=== PATIENT | female | born 1985 | race Caucasian/White ===

== ENCOUNTER 2017-01-31 08:53 | Inpatient (IN) | payer OTHER ==
[2017-01-31] MEDS ORDERED: Oxytocin in LR* 20 UNITS/1,000 ML BAG IVPB SCH ×2 (10:00→17:00)
[2017-01-31] MEDS ORDERED: [UNRECOGNIZED DRUG - MIXTURE] ONE (10:18)
[2017-01-31 10:48] LABS: Hematocrit 32 % (35-47); Hemoglobin 10.9 g/dl (12.0-16.0); Mean Corpuscular HGB Conc 34 g/dl (31-36); Mean Corpuscular Hemoglobin 28 pg (27-31); Mean Corpuscular Volume 84 fL (80-97); Mean Platelet Volume 9 um3 (7.4-10.4); Red Blood Count 3.84 10^6/ul (4.0-5.4); Red Cell Distribution Width 15 % (10.5-15); White Blood Count 11.5 10^3/ul (3.5-10.8)
[2017-01-31] MEDS ORDERED: EPHEDrine (Pressors)* 50 MG/ML VIAL IV PUSH PRN ×2 (13:16)
[2017-01-31] MEDS ORDERED: Famotidine TAB* 20 MG PO PRN (13:16)
[2017-01-31] MEDS ORDERED: Sodium Citrate/Citric Acid* 15 ML UDC PO PRN (13:16)
[2017-01-31] MEDS ORDERED: Phenylephrine IV* 40 MCG/ML 10 ML SYRINGE IV PUSH PRN ×2 (13:16)
[2017-01-31] MEDS ORDERED: OBEPIDURAL* 250 ML EPIDURAL SCH (14:00)
[2017-01-31] MEDS ORDERED: PROCHLORPERAZINE INJ 5 MG/ML 2 ML VIAL ONE (16:18)
[2017-01-31] MEDS ORDERED: ceFOXitin 2 GM IVPREMIX* 2 GM/50 ML BAG IVPB ONE (16:47)
[2017-01-31] MEDS ORDERED: Sodium Citrate/Citric Acid* 15 ML UDC PO ONE (16:48)
[2017-01-31] MEDS ORDERED: ceFOXitin 2 GM IVPREMIX* 2 GM/50 ML BAG ONE (16:57)
[2017-01-31] MEDS ORDERED: Ibuprofen TAB* 600 MG PO PRN (16:58)
[2017-01-31] MEDS ORDERED: Measles, Mumps,Rubella VACC* 0.5 ML/VIAL SUBCUT ONE (16:58)
[2017-01-31] MEDS ORDERED: Witch Hazel PAD* JAR TOPICAL PRN (16:58)
[2017-01-31] MEDS ORDERED: Glycerin ADULT SUPP PR PRN (16:58)
[2017-01-31] MEDS ORDERED: oxyCODONE/Acetamin 5/325 MG* TAB PO PRN ×3 (16:58→18:08)
[2017-01-31] MEDS ORDERED: Dibucaine 1% 28.35 GM TUBE PR PRN (16:58)
[2017-01-31] MEDS ORDERED: Lidocaine 2% PF* 10 ML AMP ONE (17:10)
[2017-01-31] MEDS ORDERED: OXYTOCIN* 10 UNITS/ML 1 ML VIAL ONE (17:48)
[2017-01-31] MEDS ORDERED: Ondansetron INJ* 2 MG/ML VIAL IV PRN ×2 (17:55→18:08)
[2017-01-31] MEDS ORDERED: Nalbuphine* 20 MG/ML 1 ML VIAL IV PRN ×3 (17:55→18:08)
[2017-01-31] MEDS ORDERED: fentaNYL* 50 MCG/ML 2 ML VIAL (100 MCG VIAL) IV PRN (17:55)
[2017-01-31] MEDS ORDERED: oxyCODONE TAB* 5 MG TAB PO PRN (17:55)
[2017-01-31] MEDS ORDERED: HYDROmorphone INJ* 1 MG/ML CARPUJECT SYRINGE IV PRN (17:55)
[2017-01-31] MEDS ORDERED: DiMENhydriNATE IV* 50 MG/ML VIAL IV PUSH PRN ×2 (17:55→18:08)
[2017-01-31] MEDS ORDERED: diPHENhydraMINE IV* 50 MG/ML 1 ml VIAL (BENADRYL) IV PRN ×2 (17:55→18:08)
[2017-01-31] MEDS ORDERED: HYDROcodone/ACETAMIN 5-325 MG* 1 TAB PO PRN ×2 (17:55→18:08)
[2017-01-31] MEDS ORDERED: Ondansetron INJ* 2 MG/ML VIAL ONE (18:04)
[2017-01-31] MEDS ORDERED: Ketorolac INJ* 30 MG/ML 1 ML VIAL ONE (18:05)
[2017-01-31] MEDS ORDERED: fentaNYL* 50 MCG/ML 2 ML VIAL (100 MCG VIAL) ONE (18:06)
[2017-01-31] MEDS ORDERED: Metoclopramide IV* 5 MG/ML 2 ML VIAL IV PRN (18:08)
[2017-01-31] MEDS ORDERED: Naloxone* 0.4 MG/ML 1 ML VIAL IV PRN (18:08)
[2017-01-31] MEDS ORDERED: Scopolamine 1.5 mg* PATCH TRANSDERM PRN (18:08)
[2017-01-31] MEDS ORDERED: PROCHLORPERAZINE INJ 5 MG/ML 2 ML VIAL IV PRN (18:08)
[2017-01-31] MEDS ORDERED: Scopolomine PATCH Remove* 1 NOTE MISC PATCH OFF PRN (18:08)
[2017-01-31] MEDS ORDERED: Naloxone* 2 MG in NS 0.9% 250 ML* 250 ML IV PRN (18:08)
[2017-01-31] MEDS ORDERED: Morphine PF AMP (0.5MG/ML)* 5 MG/10 ML AMP ONE (18:13)
[2017-01-31] MEDS: Simethicone TAB* 80 MG TAB.CHEW PO SCH ×2 (20:09→21:57)
[2017-01-31] MEDS: Docusate CAP* 100 MG PO SCH (21:57)
[2017-02-01] MEDS: Ketorolac INJ* 30 MG/ML 1 ML VIAL IV PRN ×3 (00:36→13:42)
[2017-02-01] MEDS: Acetaminophen TAB* 325 MG PO PRN (04:26)
[2017-02-01] MEDS: Docusate CAP* 100 MG PO SCH ×3 (08:32→20:47)
[2017-02-01] MEDS: Simethicone TAB* 80 MG TAB.CHEW PO SCH ×4 (08:32→20:47)
[2017-02-01] MEDS: Prenatal Vitamin TAB PO SCH (08:32)
[2017-02-01] MEDS ORDERED: Influenza VAC *QUAD* 2017-18* 0.5 ML SYRINGE IM ONE (09:00)
[2017-02-01 09:44] LABS: Hematocrit 23 % (35-47); Hemoglobin 7.7 g/dl (12.0-16.0); Mean Corpuscular HGB Conc 34 g/dl (31-36); Mean Corpuscular Hemoglobin 28 pg (27-31); Mean Corpuscular Volume 83 fL (80-97); Mean Platelet Volume 9 um3 (7.4-10.4); Red Blood Count 2.75 10^6/ul (4.0-5.4); Red Cell Distribution Width 15 % (10.5-15); White Blood Count 14.1 10^3/ul (3.5-10.8)
[2017-02-01] MEDS: Ferrous Gluconate TAB* 324 MG TAB PO SCH ×2 (10:19→20:47)
[2017-02-01] MEDS: Ibuprofen TAB* 600 MG PO PRN (20:47)
--- NOTE | 2017-02-01 21:41 | OP ---
OPERATIVE REPORT: DATE OF OPERATION: 01/31/17 - [facility] : 89 SURGEON: Oralia Mooney MD CONTINUOUS IMPROVEMENT INTERN: Km Das MD ANESTHESIOLOGIST: Simón Larry MD ANESTHESIA: Epidural. PRE-OP DIAGNOSES: Intrauterine at 41 plus weeks, arrest of dilation, arrest of descent. Bicornuate uterus. POST-OP DIAGNOSES: Intrauterine at 41 plus weeks, arrest of dilation , arrest of descent, delivered. Bicornuate uterus with uterine septum. OPERATIVE PROCEDURE: Primary low transverse section. ESTIMATED BLOOD LOSS: 800 cc. URINE OUTPUT: 150 cc of concentrated yellow urine. FLUIDS: 1600 cc of crystalloid. FINDINGS: Revealed a vertex male infant with Apgars 9 at 1 minute and 9 at 5 minutes. Weight was 8 pounds 4 ounces. Placenta was manually extracted, noted to be intact with a normal appearance and 3-vessel cord. Uterine findings: 2 separate uterine cavities identified, by a septum extending from the fundus down to the cervix, right horn of the uterus, a fully contained baby with no evidence of fenestration of the septum superior to the cervix. No evidence of retained placental tissue or membranes. Both uterine cavities were swabbed and noted to be free of any material including placental membranes . COMPLICATIONS: None apparent. DISPOSITION: Stable to recovery room. DESCRIPTION OF PROCEDURE: The patient was placed in dorsal lithotomy position. The abdomen was prepped and draped in a sterile standard fashion. Anesthesia was tested to appropriate level. The patient was identified with universal protocol prior to proceeding with the procedure. A scalpel was used to incise the skin 2 fingerbreadths above the pubic symphysis. This was carried down to the fascia. The fascia was scored in the midline and the fascial incision was extended laterally and superiorly using curvilinear scissors and pickups . The fascia was then from the rectus muscle with blunt and sharp dissections superiorly and inferiorly. The peritoneum was entered bluntly. The peritoneal incision was extended bluntly while directly visualizing bladder and bowel. The bladder blade was inserted. Lower uterine segment was identified and tented up with an Allis. An incision was made with scalpel down to the membrane. The incision was extended laterally and superiorly using bandage scissors. The amniotomy was created. Clear fluid was noted. Attempted several times to deliver the head. The skin incision was then extended with a scalpel and the baby delivered vertex, anterior and posterior shoulder delivered. No nuchal cord was appreciated. No meconium seen. Cord was allowed to pulse for greater than 60 seconds. The cord was then clamped and cut and the was handed off to the awaiting eligibility and occupancy interviewer. Appropriate cord blood was then obtained. The placenta was then manually extracted. The uterus was exteriorized and extreme difference in the sizes of the uterine cavities were noted. The right side of the uterus was fully developed, the left being minimally so. The entrance into the lower uterine segment was where the septum actually ended. There was an area of septum that had become devascularized with the descent of the head. The head was noted to be asynclitic with the delivery secondary to the disproportionate uterine cavities. The uterine incision itself was then reapproximated using 0 Vicryl first layer running locked, second layer running imbricated for complete hemostasis. The uterus was returned intraabdominally, colic gutters were lavaged, clot was removed, the hysterotomy site was noted to be hemostatic with no evidence of bleeding. The peritoneum was then clamped with Lizeth and then reapproximated using 3-0 Vicryl in a running fashion. The skin was then reapproximated using 4-0 Monocryl in a subcuticular running fashion. Mastisol and Steri-Strips were applied. All sponge, needle, instrument and blade counts were correct throughout the case. The patient tolerated the procedure well and went to recovery room in stable condition. [id number]/[facility] #: [id number] [facility] CENTERVictorino
[2017-02-02] MEDS: Simethicone TAB* 80 MG TAB.CHEW PO SCH ×4 (01:00→20:33)
[2017-02-02] MEDS: Ibuprofen TAB* 600 MG PO PRN ×2 (05:11→15:02)
[2017-02-02] MEDS: Docusate CAP* 100 MG PO SCH ×3 (10:08→20:32)
[2017-02-02] MEDS: Prenatal Vitamin TAB PO SCH (10:08)
[2017-02-02] MEDS: Ferrous Gluconate TAB* 324 MG TAB PO SCH ×2 (11:35→20:33)
--- NOTE | 2017-02-02 15:36 | PTEDU ---
Patient Name: JANA HEDRICK JANA HEDRICK selected video: Never Ever Shake a Baby to view on 02/02/2017 at 3:34:24 PM jose meléndez [id number]
[2017-02-02] MEDS: Acetaminophen TAB* 325 MG PO PRN (15:59)
[2017-02-03] MEDS: Ibuprofen TAB* 600 MG PO PRN ×3 (00:59→14:31)
[2017-02-03] MEDS: Acetaminophen TAB* 325 MG PO PRN (05:56)
[2017-02-03 07:49] VITALS: BP 125/72
[2017-02-03] MEDS: Prenatal Vitamin TAB PO SCH (08:26)
[2017-02-03] MEDS: Simethicone TAB* 80 MG TAB.CHEW PO SCH ×2 (08:26→13:01)
[2017-02-03] MEDS: Ferrous Gluconate TAB* 324 MG TAB PO SCH (08:26)
[2017-02-03] MEDS: Docusate CAP* 100 MG PO SCH ×2 (08:26→13:00)
[2017-02-03] MEDS ORDERED: Influenza VAC *QUAD* 2017-18* 0.5 ML SYRINGE IM ONE (13:26)
== END 2017-02-03 14:53 | disposition home or self-care (01) | DRG 766 ==
LOC: MCHOBOUT 08:53 → MCHOB 09:24
PROVIDERS: ADMIT Obstetrics & Gynecology; ATTEND Obstetrics & Gynecology
PROC: 3E0P3VZ Introduction of Hormone into Female Reproductive, Percutaneous Approach (ICD-10-PCS; 2017-01-31)
PROC: 10907ZC Drainage of Amniotic Fluid, Therapeutic from Products of Conception, Via Natural or Artificial Opening (ICD-10-PCS; 2017-01-31)
PROC: 10D00Z1 Extraction of Products of Conception, Low, Open Approach (ICD-10-PCS; principal; 2017-01-31 17:21)
DX: O34.03 Maternal care for unspecified congenital malformation of uterus, third trimester (principal); D64.9 Anemia, unspecified; O90.81 Anemia of the puerperium; Q51.3 Bicornate uterus; O32.4XX0 Maternal care for high head at term, not applicable or unspecified; O62.0 Primary inadequate contractions; Z3A.41 41 weeks gestation of pregnancy; Z37.0 Single live birth
CPT/HCPCS: 36415; 85025; 86850; 86900; 86901; 88307; 90686; 90707; A9270-GY; J0694; J0780; J1885; J2001; J2405; J2590; J3010

== ENCOUNTER 2019-02-01 06:21 | Inpatient (IN) | payer OTHER ==
[~2019-02-01 06:21] MED LIST: Buffered Lidocaine 1% SYRIN* 1 ML/SYRINGE INTRADERM ONE; Lactated Ringers 1000 ML Bag* 1,000 ML IV SCH; Sodium Citrate/Citric Acid* 15 ML UDC PO ONE
--- OUTSIDE RECORDS SUMMARY | 2019-02-01 06:24 | XMS REPORT | Continuity of Care Document ---
:1985 External Reference #:[id number] Author Name Oralia Mooney MD Address [address] [place] [address] Care Team Providers Name Role Phone Freda Jaime MD Care Team Information Bad Cloth Checker [phone] Problems Description No Information Available Social History Type Date Description Comments Sex Unknown Tobacco Use Start: Unknown Never Smoked Cigarettes ETOH Use Denies alcohol use Tobacco Use Start: Unknown Patient has never smoked Recreational Drug Use Denies Drug Use Smoking Status Reviewed: 01/26/19 Patient has never smoked Exercise Type/Frequency Exercises sporadically Seat Belt/Car Seat Always uses seat belt Allergies, Adverse Reactions, Alerts Description No Known Drug Allergies Medications Active Medications SIG Qnty Indications Ordering Provider Date 1 po qd Unknown Iron 1 by mouth 90tabs Unknown 325(65Fe) mg Tablets every day History Medications Ranitidine 150 take one tab by 60tabs Danyell Guzman MD 08/30/2018 - Maximum Strength mouth at bedtime 10/11/2018 150mg and again in Tablets morning for reflux symptoms Immunizations CPT Code Status Date Vaccine Lot # [id number] Given 01/12/2019 Tetnus, Diptheria Toxoids And Acellular Pertussis, [id number] PT > 7Yrs Old [address]00 Given 01/12/2019 Influenza Vaccine Quadrivalent Preser/Antibiotic [id number] Free Im Use 02625 Given 07/31/2018 Influenza Vaccine Quadrivalent Preser/Antibiotic [id number] Free Im Use 64000 Given 10/26/2016 Tetnus, Diptheria Toxoids And Acellular Pertussis, [id number] PT > 7Yrs Old Vital Signs Date Vital Result Comment 07/31/2018 1:17pm BP Systolic 106 mmHg BP Diastolic 62 mmHg Height 65 inches 5'5" Weight 153.00 lb BMI (Body Mass Index) 25.5 kg/m2 Last Menstrual Period 9001236 2 Parity 1 03/18/2017 2:14pm BP Systolic 112 mmHg BP Diastolic 66 mmHg Height 65 inches 5'5" Weight 165.00 lb BMI (Body Mass Index) 27.5 kg/m2 1 Parity 1 Results Test Date Facility Test Result H/L Range Note CBC Auto 01/30/2019 [facility] White Blood 9.5 10^3/uL Normal 3.5-10.8 [place] [address] Count [phone] Red Blood Count 3.47 10^6/uL Low 3.70-4.87 Hemoglobin 9.8 g/dL Low 12.0-16.0 Hematocrit 28 % Low 35-47 Mean Corpuscular Volume 80 fL Normal 80-97 Mean Corpuscular Hemoglobin 28 pg Normal 27-31 Mean Corpuscular HGB Conc 35 g/dL Normal 31-36 Red Cell Distribution Width 15 % Normal 10-15 Platelet Count 270 10^3/uL Normal 150-450 Mean Platelet Volume 8.3 fL Normal 7.4-10.4 Abs Neutrophils 7.2 10^3/uL Normal 1.5-7.7 Abs Lymphocytes 1.6 10^3/uL Normal 1.0-4.8 Abs Monocytes 0.7 10^3/uL Normal 0-0.8 Abs Eosinophils 0.1 10^3/uL Normal 0-0.6 Abs Basophils 0.1 10^3/uL Normal 0-0.2 Abs Nucleated RBC 0.0 10^3/uL Granulocyte % 75.2 % Lymphocyte % 16.4 % Monocyte % 7.2 % Eosinophil % 0.6 % Basophil % 0.6 % Nucleated Red Blood Cells % 0.0 Type And Screen 01/30/2019 [facility] Patient [place] [address] [phone] Antibody Screen NEGATIVE Laboratory test 01/12/2019 [facility] Genital For SEE RESULT 1 [place] [address] GRP B Strep BELOW [phone] Only Laboratory test 11/09/2018 [facility] Glucose 1 HR 91 mg/dL Normal 70-16 2 [place] [address] Post Prandial 0 [phone] CBC With No Diff 11/09/2018 [facility] White Blood 10.5 Normal 3.5-1 [place] [address] Count 10^3/uL 0.8 [phone] Red Blood Count 3.53 10^6/uL Low 3.70-4.87 Hemoglobin 10.0 g/dL Low 12.0-16.0 Hematocrit 31 % Low 35-47 Mean Corpuscular Volume 88 fL Normal 80-97 Mean Corpuscular Hemoglobin 28 pg Normal 27-31 Mean Corpuscular HGB Conc 32 g/dL Normal 31-36 Red Cell Distribution Width 15 % Normal 10-15 Platelet Count 323 10^3/uL Normal 150-450 Mean Platelet Volume 8.4 fL Normal 7.4-10.4 Urine Drug 08/30/2018 [facility] Urine Amphetamine Negative ng/ mL 3 Comp 20 [place] [address] [phone] Urine Barbiturates Negative ng/mL 4 Urine Benzodiazepines Negative ng/mL 5 Urine Cocaine Negative ng/mL 6 Urine Phencyclidine Negative ng/mL Cutoff: 25 Urine Tetrahydrocannabinol Negative ng/mL Cutoff: 50 7 Creatinine, Urine 263.0 mg/dL Specific Martin 1.019 pH 5.8 Oxidants Negative 8 Adulterants Comment Normal Codeine, Ur Not Detected ng/mL Cutoff: 25 9 Ufowflz-7-wjbz-glucuronide, Ur Not Detected ng/mL 10 Morphine, Ur Not Detected ng/mL Cutoff: 25 11 Cjloettp-3-rmje-glucuronide, U Not Detected ng/mL 12 6-monoacetylmorphine, Ur Not Detected ng/mL Cutoff: 25 13 Hydrocodone, Ur Not Detected ng/mL Cutoff: 25 14 Norhydrocodone, Ur Not Detected ng/mL Cutoff: 25 15 Dihydrocodeine, Ur Not Detected ng/mL Cutoff: 25 16 Hydromorphone, Ur Not Detected ng/mL Cutoff: 25 17 Pcetjxmaamcsl2cskujucpgxrjcqc Not Detected ng/mL 18 Oxycodone, Ur Not Detected ng/mL Cutoff: 25 19 Noroxycodone, Ur Not Detected ng/mL Cutoff: 25 20 Oxymorphone, Ur Not Detected ng/mL Cutoff: 25 21 Djqewcbysdx-3-mpup-glucuronide Not Detected ng/mL 22 Noroxymorphone, Ur Not Detected ng/mL Cutoff: 25 23 Fentanyl, Ur Not Detected ng/mL Cutoff: 2 24 Norfentanyl, Ur Not Detected ng/mL Cutoff: 2 25 Meperidine, Ur Not Detected ng/mL Cutoff: 25 26 Normeperidine, Ur Not Detected ng/mL Cutoff: 25 27 Naloxone, Ur Not Detected ng/mL Cutoff: 25 28 Kpcmrhme-8-tdzk-glucuronide, U Not Detected ng/mL 29 Methadone, Ur Not Detected ng/mL Cutoff: 25 30 Eddp, Ur Not Detected ng/mL Cutoff: 25 31 Propoxyphene, Ur Not Detected ng/mL Cutoff: 25 32 Norpropoxyphene, Ur Not Detected ng/mL Cutoff: 25 33 Tramadol, Ur Not Detected ng/mL Cutoff: 25 34 O-desmethyltramadol, Ur Not Detected ng/mL Cutoff: 25 35 Tapentadol, Ur Not Detected ng/mL Cutoff: 25 36 N-desmethyltapentadol, Ur Not Detected ng/mL Cutoff: 50 37 Isblfdsewe-zwvy-vywdlmvaewy, U Not Detected ng/mL 38 Buprenorphine, Ur Not Detected ng/mL Cutoff: 5 39 Norbuprenorphine, Ur Not Detected ng/mL Cutoff: 5 40 Norbuprenorphine glucuronide Not Detected ng/mL Cutoff: 20 41 Opioid Interpretation See Comment 42 Serum Integrated Screen 08/30/2018 Old DO Not Use [facility] Interpretation SEE BELOW 43 Part 2 [place] Risk For Ontd <1:5000 Age Risk Down Syndrome 1:590 SATINDER Down Syndrome Risk <1:5000 <1:270 SATINDER Trisomy 18 Risk <1:5000 <1:100 Calculated Gestational Age 17.0 Afp,Serum 41.5 ng/mL Afp Mom 1.13 44 HCG,Serum 27.3 IU/mL HCG Mom 0.98 Estriol,Free 0.71 ng/mL Estriol Mom 0.72 Inhibin A,Dimeric 184 pg/mL Inhibin A Mom 1.12 Sapna-A 1913.7 ng/mL 45 Sapna-A Mom 1.77 46 Referring Physician Name NOT GIVEN Referring Physician Phone NOT GIVEN Referring Physician Npi NOT GIVEN Specimen # From Part 1 NOT GIVEN Date Of 1985 Collection Date 08/30/2018 Maternal Weight 153 lbs Est'd Date Of Delivery 02/07/2019 Mother's Ethnic Origin Insulin Depend Diabetic NO Repeat Specimen NO Number Of Fetuses 1 HX Of Neural Tube Defects NO Cigarette Smoker NOT GIVEN 47 Serum Integrated SCRN Part 08/04/2018 Old DO Not Use [facility] Comment SEE BELOW 48 1 NC Referring Physician Name FLORINDA QUINONEZ 49 Referring Physician Phone [phone] Referring Physician Npi [phone] Date Of 1985 Collection Date 08/04/2018 52 Maternal Weight 153 lbs 53 Est'd Date Of Delivery 02/07/2019 54 ALBINA Determined By US 55 Mother's Ethnic Origin 56 Number Of Fetuses 1 57 Insulin Depend Diabetic NO 58 Repeat Specimen NO 59 HX Of Neural Tube Defects NO 60 Prev Down Synd NO 61 Donor Egg NO 62 Donor Age:Egg Retrieval NG 63 Cigarette Smoker NG 64 PNL No 08/04/2018 [facility] Rubella Screen Immune Immune 65 [place] [address] [phone] Hemoglobin A1c 5.4 % Normal 4.0-5.6 66 Hepatitis B Surface Ag Nonreactive Nonreactive 67 Syphillis Igg W/Reflex RPR Negative Negative 68 CBC With No 08/04/2018 [facility] White Blood 7.1 10^3/uL Normal 3.5-10.8 [place] [address] Count [phone] Red Blood Count 3.92 10^6/uL Normal 3.70-4.87 Hemoglobin 11.3 g/dL Low 12.0-16.0 Hematocrit 33 % Normal 33-41 Mean Corpuscular Volume 84 fL Normal 80-97 Mean Corpuscular Hemoglobin 29 pg Normal 27-31 Mean Corpuscular HGB Conc 34 g/dL Normal 31-36 Red Cell Distribution Width 14 % Normal 10.5-15 Platelet Count 295 10^3/uL Normal 150-450 Mean Platelet Volume 8.8 fL Normal 7.4-10.4 Type And Screen 08/04/2018 [facility] Patient [place] [address] [phone] Antibody Screen NEGATIVE HIV 1/2 AB 08/04/2018 [facility] HIV 1 2 Nonreactive Nonreactive [address] [place] [address] Antibody [phone] Lead 08/04/2018 [facility] Lead,Venous, < 1.0 g/dL 0.0-4.9 70 [place] [address] B [phone] Venous/Capillary Venous Submitting Laboratory Phone [phone] Parvovirus B19 08/04/2018 [facility] Parvovirus Positive Abnormal Negative Igg [place] [address] (B19) IgG [phone] Antibody Parvovirus (B19) IgM Antibody Negative Negative Parvovirus Interpretation See Comment 72 1 SEE RESULT BELOW Name: AKILAH SULLIVAN : [address]: Oralia Mooney MD Acct: [id number] Unit: [id number] AGE: 33 Location: [facility] Re01/12/19 SEX: F Status: REG REF SPEC: [id number] JORGE: 01/12/19-[address] [facility] [address]: Oralia Mooney MD REQ: [id number] RECD: 01/12/19 STATUS: COMP _ SOURCE: CER/VAG/RE SPDESC: ORDERED: Grp B Strp Scrn COMMENTS: [id number] QUERIES: Is Patient Penicillin Allergic? N Is patient penicillin allergic and/or sensitivities needed? N Provider Requisition # [id number] Procedure Result Reported Site Group B Strep Culture Screen Final 01/14/19- 1024 ML Group B Strep Screen Negative * ML - Main Lab . END OF REPORT DEPARTMENT OF PATHOLOGY, [address] [place] [address] Tc Verdugo M.D. Director KONSTANTIN # [id number] 2 [id number] REFERENCE VALUE Cutoff: 500 4 REFERENCE VALUE Cutoff: 200 5 REFERENCE VALUE Cutoff: 100 6 REFERENCE VALUE Cutoff: 150 7 ADDITIONAL INFORMATION This report is intended for use in clinical monitoring or management of patients. It is not intended for use in employment-related testing. 8 REFERENCE VALUE Cutoff: 200 mg/L 9 Tylenol 3 10 Metabolite of codeine REFERENCE VALUE Cutoff: 100 11 Kely Duncan, MS Contin; Also a minor metabolite (10%) of codeine and can be seen in low concentrations (<2,000 ng/mL) with poppy seed ingestion. 12 Metabolite of morphine REFERENCE VALUE Cutoff: 100 13 Metabolite of heroin 14 Lortab, [place], Vicodin; Also a very minor metabolite of codeine and impurity (<1%) of oxycodone. 15 Metabolite of hydrocodone 16 Metabolite of hydrocodone 17 Dilaudid, Exalgo; Also a metabolite of hydrocodone and a minor (<5%) metabolite of morphine. 18 Metabolite of hydromorphone REFERENCE VALUE Cutoff: 100 19 Endocet, Percocet, Oxycontin 20 Metabolite of oxycodone 21 Numorphan, Opana; Also a metabolite of oxycodone. 22 Metabolite of oxymorphone REFERENCE VALUE Cutoff: 100 23 Metabolite of oxymorphone 24 Actiq, Duragesic, Fentora 25 Metabolite of fentanyl 26 Demerol 27 Metabolite of meperidine 28 Narcan 29 Metabolite of naloxone REFERENCE VALUE Cutoff: 100 30 Dolophine 31 Metabolite of methadone 32 Darvon, Darvocet 33 Metabolite of propoxyphene 34 Tradol, Ultram, Ultracet 35 Metabolite of tramadol 36 Nucynta 37 Metabolite of tapentadol 38 Metabolite of tapentadol REFERENCE VALUE Cutoff: 100 39 Buprenex, Suboxone 40 Metabolite of buprenorphine 41 Metabolite of buprenorphine 42 No opioids were detected. The absence of expected drug(s) and/or drug metabolite(s) may indicate non-compliance, altered pharmacokinetics, inappropriate timing of specimen collection relative to drug administration, diluted/adulterated urine, or limitations of testing. ADDITIONAL INFORMATION This test was developed and its performance characteristics determined by [facility] in a manner consistent with CLIA requirements. This test has not been cleared or approved by the U.S. Food and Drug Administration. Test Performed by: [facility] [place] [id number] [place] [address] 43 SCREEN NEGATIVE FOR OPEN NTD, DOWN SYNDROME AND TRISOMY 18. 44 Reference Range: <2.50 IDD <1.90 TWINS <4.00 TWINS IDD <3.50 TRIPLETS <4.50 45 This test was performed using a kit that has not been cleared or approved by the FDA. The analytical performance characteristics of this test [facility] been [facility]. This test should not be used for diagnosis without confirmation by other medically established means. 46 The Serum Integrated Screen combines SAPNA-A in the first trimester with AFP, unconjugated estriol, intact hCG and Inhibin A in the second trimester. This provides a useful screening test for detection of open neural tube defects, Down syndrome and Trisomy 18. It should be noted that normal results can never guarantee the of a normal baby and that 2 to 3 percent of newborns have some type of physical or mental defect, many of which are undetectable through any known diagnostic technique. Interpretation reviewed by: Kaiden Olea, Ph.D., [facility]. 47 This is a screening test, not a diagnostic test. This risk assessment is based on demographic data provided by the ordering physician. Please notify the laboratory promptly if any data are incorrect. It has been observed that patients who smoke cigarettes during may have a slightly increased risk of having a false positive SATINDER screen for Down Syndrome or trisomy 18. If you have questions concerning this report: For clinical consultation, call ; For technical questions, call ext [phone]; For recalculations, fax to . For additional information, please refer to http://education.E-Buy.FRS/faq/FAQ93 (This link is being provided for informational/educational purposes only.) 48 Thank you for submitting this patients Part 1 specimen. Please submit her Part 2 specimen between 08/16/2018-10/10/2018 (15.0 and 22.9 weeks gestation) with 08/16/2018-08/29/2018 (15.0 and 16.9 weeks gestation) being optimal. When submitting Part 2, please include the following Specimen # from Part 1: [id number] This test was developed and its analytical performance characteristics have been determined by [facility]. It has not been cleared or approved by FDA. This assay has been validated pursuant to the CLIA regulations and is used for clinical purposes. For additional information, please refer to http://education.E-Buy.FRS/faq/FAQ91 (This link is being provided for informational/educational purposes only.) It has been observed that patients who smoke cigarettes during may have a slightly increased risk of having a false positive SATINDER screen for Down Syndrome or trisomy 18. If you have questions concerning this report: For clinical consultation, call ; For technical questions, call ext [phone]; For recalculations, fax to [phone]. 49 For additional information, please refer to http://PureSignCo.[employer]/faq/FAQ91 (This link is being provided for informational/educational purposes only.) It has been observed that patients who smoke cigarettes during may have a slightly increased risk of having a false positive SATINDER screen for Down Syndrome or trisomy 18. If you have questions concerning this report: For clinical consultation, call ; For technical questions, call ext [phone]; For recalculations, fax to [phone]. 50 For additional information, please refer to http://PureSign[employer]/faq/FAQ91 (This link is being provided for informational/educational purposes only.) It has been observed that patients who smoke cigarettes during may have a slightly increased risk of having a false positive SATINDER screen for Down Syndrome or trisomy 18. If you have questions concerning this report: For clinical consultation, call ; For technical questions, call ext [phone]; For recalculations, fax to [phone]. 51 For additional information, please refer to http://P[employer]/faq/FAQ91 (This link is being provided for informational/educational purposes only.) It has been observed that patients who smoke cigarettes during may have a slightly increased risk of having a false positive SATINDER screen for Down Syndrome or trisomy 18. If you have questions concerning this report: For clinical consultation, call ; For technical questions, call ext [phone]; For recalculations, fax to [phone]. 52 For additional information, please refer to http://[employer]/faq/FAQ91 (This link is being provided for informational/educational purposes only.) It has been observed that patients who smoke cigarettes during may have a slightly increased risk of having a false positive SATINDER screen for Down Syndrome or trisomy 18. If you have questions concerning this report: For clinical consultation, call ; For technical questions, call ext [phone]; For recalculations, fax to [phone]. 53 For additional information, please refer to http://[employer]/faq/FAQ91 (This link is being provided for informational/educational purposes only.) It has been observed that patients who smoke cigarettes during may have a slightly increased risk of having a false positive SATINDER screen for Down Syndrome or trisomy 18. If you have questions concerning this report: For clinical consultation, call ; For technical questions, call ext [phone]; For recalculations, fax to [phone]. 54 For additional information, please refer to http://Stellarray/faq/FAQ91 (This link is being provided for informational/educational purposes only.) It has been observed that patients who smoke cigarettes during may have a slightly increased risk of having a false positive SATINDER screen for Down Syndrome or trisomy 18. If you have questions concerning this report: For clinical consultation, call ; For technical questions, call ext [phone]; For recalculations, fax to [phone]. 55 For additional information, please refer to http://Stellarray/faq/[email or web address] (This link is being provided for informational/educational purposes only.) It has been observed that patients who smoke cigarettes during may have a slightly increased risk of having a false positive SATINDER screen for Down Syndrome or trisomy 18. If you have questions concerning this report: For clinical consultation, call ; For technical questions, call ext [phone]; For recalculations, fax to [phone]. 56 For additional information, please refer to http://Stellarray/faq/[email or web address] (This link is being provided for informational/educational purposes only.) It has been observed that patients who smoke cigarettes during may have a slightly increased risk of having a false positive SATINDER screen for Down Syndrome or trisomy 18. If you have questions concerning this report: For clinical consultation, call ; For technical questions, call ext [phone]; For recalculations, fax to [phone]. 57 For additional information, please refer to http://Stellarray/faq/FAQ91 (This link is being provided for informational/educational purposes only.) It has been observed that patients who smoke cigarettes during may have a slightly increased risk of having a false positive SATINDER screen for Down Syndrome or trisomy 18. If you have questions concerning this report: For clinical consultation, call ; For technical questions, call ext [phone]; For recalculations, fax to [phone]. 58 For additional information, please refer to http://Stellarray/faq/FAQ91 (This link is being provided for informational/educational purposes only.) It has been observed that patients who smoke cigarettes during may have a slightly increased risk of having a false positive SATINDER screen for Down Syndrome or trisomy 18. If you have questions concerning this report: For clinical consultation, call ; For technical questions, call ext [phone]; For recalculations, fax to [phone]. 59 For additional information, please refer to http://Stellarray/faq/FAQ91 (This link is being provided for informational/educational purposes only.) It has been observed that patients who smoke cigarettes during may have a slightly increased risk of having a false positive SATINDER screen for Down Syndrome or trisomy 18. If you have questions concerning this report: For clinical consultation, call ; For technical questions, call ext [phone]; For recalculations, fax to [phone]. 60 For additional information, please refer to http://Stellarray/faq/FAQ91 (This link is being provided for informational/educational purposes only.) It has been observed that patients who smoke cigarettes during may have a slightly increased risk of having a false positive SATINDER screen for Down Syndrome or trisomy 18. If you have questions concerning this report: For clinical consultation, call ; For technical questions, call ext [phone]; For recalculations, fax to [phone]. 61 For additional information, please refer to http://Stellarray/faq/[email or web address] (This link is being provided for informational/educational purposes only.) It has been observed that patients who smoke cigarettes during may have a slightly increased risk of having a false positive SATINDER screen for Down Syndrome or trisomy 18. If you have questions concerning this report: For clinical consultation, call ; For technical questions, call ext [phone]; For recalculations, fax to [phone]. 62 For additional information, please refer to http://Stellarray/faq/FAQ91 (This link is being provided for informational/educational purposes only.) It has been observed that patients who smoke cigarettes during may have a slightly increased risk of having a false positive SATINDER screen for Down Syndrome or trisomy 18. If you have questions concerning this report: For clinical consultation, call ; For technical questions, call ext [phone]; For recalculations, fax to [phone]. 63 For additional information, please refer to http://Stellarray/faq/[email or web address] (This link is being provided for informational/educational purposes only.) It has been observed that patients who smoke cigarettes during may have a slightly increased risk of having a false positive SATINDER screen for Down Syndrome or trisomy 18. If you have questions concerning this report: For clinical consultation, call ; For technical questions, call ext [phone]; For recalculations, fax to [phone]. 64 For additional information, please refer to http://Stellarray/faq/FAQ91 (This link is being provided for informational/educational purposes only.) It has been observed that patients who smoke cigarettes during may have a slightly increased risk of having a false positive SATINDER screen for Down Syndrome or trisomy 18. If you have questions concerning this report: For clinical consultation, call ; For technical questions, call ext [phone]; For recalculations, fax to [phone]. 65 [id number] 66 Therapeutic target for the treatment of diabetes mellitus patients is <7% HBA1C, and in selective patients <6.0%. Please refer to [place] [employer] diabetic care guidelines for further information. 67 [id number] 69 It is recognized that currently available assays for the detection of antibodies to HIV-1 and/or HIV-2 may not detect all infected individuals. HIV antibodies may be undetectable in some stages of the infection and in some clinical conditions. The performance of this assay has not been established for populations of infants or children. Assayed by Chemiluminescence Microparticle Immunoassay on the Siemens Advia Centaur CP. Values obtained with different methods or kits cannot be used interchangeably.The diagnostic specificity of the ADVIA Centaur 1/O/2 Enhanced assay in the low risk population was 99.90% (6052/6058) with a 95% confidence interval of 99.78 to 99.96%. 70 ADDITIONAL INFORMATION Testing performed by Inductively Coupled Plasma-Mass Spectrometry (ICP-MS). This test was developed and its performance characteristics determined by [facility] in a manner consistent with CLIA requirements. This test has not been cleared or approved by the U.S. Food and Drug Administration. 71 Test Performed by: [facility] - [address] [address] 72 RESULT: Results suggest past infection. ADDITIONAL INFORMATION This test has been modified from the flight operations inspector's instructions. Its performance characteristics were determined by [facility] in a manner consistent with CLIA requirements. This test has not been cleared or approved by the U.S. Food and Drug Administration. Test Performed by: [facility] [address], [place] [address] Procedures Date Code Description Status 09/27/2018 83418 Echography Uterus Complete Completed Medical Devices Description No Information Available Encounters Description No Information Available Assessments Date Code Description Provider 01/26/2019 O34.211 Maternal care for low transverse scar from Oralia Mooney MD previous delivery 01/19/2019 O34.211 Maternal care for low transverse scar from Danyell Guzman MD previous delivery 01/12/2019 O34.211 Maternal care for low transverse scar from Oralia Mooney MD previous delivery 01/12/2019 Z23 Encounter for immunization Oralia Mooney MD 12/28/2018 O34.211 Maternal care for low transverse scar from Danyell Guzman MD previous delivery 12/15/2018 O34.211 Maternal care for low transverse scar from Oralia Mooney MD previous delivery 11/09/2018 Z36.9 Encounter for screening, Deion Ansari M.D. unspecified 11/09/2018 Z36.9 Encounter for screening, Laboratory unspecified 11/09/2018 O34.211 Matern care for low transverse scar from Danyell Guzman MD prev del 10/20/2018 Z34.82 Encounter for suprvsn of normal , Danyell Guzman MD second trimester 10/20/2018 O34.211 Matern care for low transverse scar from Danyell Guzman MD prev del 09/27/2018 Z36.3 Encounter for screening for Danyell Guzman MD malformations 09/27/2018 Z34.82 Encounter for suprvsn of normal , Danyell Guzman MD second trimester 09/27/2018 Z36.3 Encounter for screening for Ultrasounds malformations 08/30/2018 Z36.9 Encounter for screening, Deion Ansari M.D. unspecified 08/30/2018 Z34.82 Encounter for suprvsn of normal , Danyell Guzman MD second trimester 08/30/2018 Z36.9 Encounter for screening, Laboratory unspecified 08/04/2018 Z36.9 Encounter for screening, Oralia Mooney MD unspecified 08/04/2018 Z36.9 Encounter for screening, Laboratory unspecified Plan of Treatment Future Appointment(s):03/05/2019 11:00 am - Oralia Mooney MD at [facility]02/08/2019 10:45 am - Kerline Fraser CNM at [facility]02/01/2019 7 :45 am - Joe Ferrara JR, DO at [facility] R1 7:45 am - Oralia Mooney MD at [facility] R1 - Oralia Mooney MDO34.211 Maternal care for low transverse scar from previous deliveryComments:Pt desires a repeat section and declines bilateral tubal ligation. Pt accept risk to include but not limited to infection, bleeding ,damage to internal organs, pain ,scarring , and need for blood products . Consent form personally reviewed and signed together with . Functional Status Functional Condition Comment Date Status Glasses Active Mental Status Description No Information Available Referrals Description No Information Available
--- OUTSIDE RECORDS SUMMARY | 2019-02-01 06:24 | XMS REPORT | Continuity of Care Document ---
:1985 External Reference #:[id number] Author Name Oralia Mooney MD (transmitted by agent of provider Didi Coughlin) Address [address] [place] [address] Care Team Providers Name Role Phone Freda Jaime MD Care Team Information Ground Mixer [phone] Problems Description No Information Available Social History [...] - Maximum Strength mouth at bedtime 10/11/2018 and again in 150mg Tablets morning for reflux symptoms Diclegis 2 tab by mouth at 180tabs Kerline Ramirez 07/31/2018 - 10-10mg bedtime initalEvelio weinberg CNM 09/26/[address] up to 4 tabs per day (one tab in morning, one tab midafternoon, and 2 tabs at bedtime) Immunizations CPT Code Status Date Vaccine Lot # [id number] Given 01/12/2019 Tetnus, Diptheria Toxoids And Acellular Pertussis, [id number] PT > 7Yrs Old [address] Given 01/12/2019 Influenza Vaccine Quadrivalent Preser/Antibiotic [id number] Free Im Use 81673 Given 07/31/2018 Influenza Vaccine Quadrivalent Preser/Antibiotic [id number] Free Im Use 01136 Given 10/26/2016 Tetnus, Diptheria Toxoids And Acellular Pertussis, [id number] PT > 7Yrs Old Vital Signs Date Vital Result Comment 07/31/2018 1:17pm BP Systolic 106 mmHg BP Diastolic 62 mmHg Height 65 inches 5'5" Weight 153.00 lb BMI (Body Mass Index) 25.5 kg/m2 Last Menstrual Period [id number] 2 Parity 1 03/18/2017 2:14pm BP Systolic 112 mmHg BP Diastolic 66 mmHg Height 65 inches 5'5" Weight 165.00 lb BMI (Body Mass Index) 27.5 kg/m2 1 Parity 1 Results Test Date Facility Test Result H/L Range Note Laboratory test 01/12/2019 [facility] Genital For SEE RESULT [address] [place] [address] GRP B Strep BELOW [phone] Only Laboratory test 11/09/2018 [facility] Glucose 1 HR 91 mg/dL Normal 70-160 [address] [place] [address] Post Prandial [phone] CBC With No Diff 11/09/2018 [facility] White Blood 10.5 Normal 3.5-10.8 [place] [address] Count 10^3/uL [phone] Red Blood Count 3.53 10^6/uL Low 3.70-4.87 Hemoglobin 10.0 g/dL Low 12.0-16.0 Hematocrit 31 % Low 35-47 Mean Corpuscular Volume 88 fL Normal 80-97 Mean Corpuscular Hemoglobin 28 pg Normal 27-31 Mean Corpuscular HGB Conc 32 g/dL Normal 31-36 Red Cell Distribution Width 15 % Normal 10-15 Platelet Count 323 10^3/uL Normal 150-450 Mean Platelet Volume 8.4 fL Normal 7.4-10.4 Urine Drug 08/30/2018 [facility] Urine Amphetamine Negative ng/ mL 3 Comp [address] [place] [address] [phone] Urine Barbiturates Negative ng/mL 4 Urine Benzodiazepines Negative ng/mL 5 Urine Cocaine Negative ng/mL 6 Urine Phencyclidine Negative ng/mL Cutoff: 25 Urine Tetrahydrocannabinol Negative ng/mL Cutoff: 50 7 Creatinine, Urine 263.0 mg/dL Specific [place] 1.019 pH 5.8 Oxidants Negative 8 Adulterants Comment Normal Codeine, Ur Not Detected ng/mL Cutoff: 25 9 Lbxjbgk-1-bjju-glucuronide, Ur Not Detected ng/mL 10 Morphine, Ur Not Detected ng/mL Cutoff: 25 11 Aadqzjir-0-yyvr-glucuronide, U Not Detected ng/mL 12 6-monoacetylmorphine, Ur Not Detected ng/mL Cutoff: 25 13 Hydrocodone, Ur Not Detected ng/mL Cutoff: 25 14 Norhydrocodone, Ur Not Detected ng/mL Cutoff: 25 15 Dihydrocodeine, Ur Not Detected ng/mL Cutoff: 25 16 Hydromorphone, Ur Not Detected ng/mL Cutoff: 25 17 Cqlkdwicwnntk7rgltyohuwhdkoov Not Detected ng/mL 18 Oxycodone, Ur Not Detected ng/mL Cutoff: 25 19 Noroxycodone, Ur Not Detected ng/mL Cutoff: 25 20 Oxymorphone, Ur Not Detected ng/mL Cutoff: 25 21 Vfuphrqybzh-6-kbrq-glucuronide Not Detected ng/mL 22 Noroxymorphone, Ur Not Detected ng/mL Cutoff: 25 23 Fentanyl, Ur Not Detected ng/mL Cutoff: 2 24 Norfentanyl, Ur Not Detected ng/mL Cutoff: 2 25 Meperidine, Ur Not Detected ng/mL Cutoff: 25 26 Normeperidine, Ur Not Detected ng/mL Cutoff: 25 27 Naloxone, Ur Not Detected ng/mL Cutoff: 25 28 Ijoujqkw-4-bqjn-glucuronide, U Not Detected ng/mL 29 Methadone, Ur [...] Ur Not Detected ng/mL Cutoff: 50 37 Kstirornal-kkzc-komcpagqlkk, U Not Detected ng/mL 38 Buprenorphine, Ur [...] Defects NO Cigarette Smoker NOT GIVEN 47 Parvovirus B19 08/04/2018 [facility] Parvovirus Positive Abnormal Negative [place] [address] (B19) IgG [phone] Antibody Parvovirus (B19) IgM Antibody Negative Negative Parvovirus Interpretation See Comment 48 Lead 08/04/2018 [facility] Lead,Venous, B < 1.0 g/dL 0.0- 4.9 [address] [place] [address] [phone] Venous/Capillary Venous Submitting Laboratory Phone [phone] HIV 1/2 AB 08/04/2018 [facility] HIV 1 2 Nonreactive Nonreactive [address] [place] [address] Antibody [phone] Type And 08/04/2018 [facility] [place] [address] Blood Type [phone] Antibody Screen NEGATIVE CBC With No 08/04/2018 [facility] White Blood 7.1 10^3/uL Normal 3.5-10.8 [place] [address] Count [phone] Red Blood Count 3.92 10^6/uL Normal 3.70-4.87 Hemoglobin 11.3 g/dL Low 12.0-16.0 Hematocrit 33 % Normal 33-41 Mean Corpuscular Volume 84 fL Normal 80-97 Mean Corpuscular Hemoglobin 29 pg Normal 27-31 Mean Corpuscular HGB Conc 34 g/dL Normal 31-36 Red Cell Distribution Width 14 % Normal 10.5-15 Platelet Count 295 10^3/uL Normal 150-450 Mean Platelet Volume 8.8 fL Normal 7.4-10.4 PNL No 08/04/2018 [facility] Rubella Screen Immune Immune [address] [place] [address] [phone] Hemoglobin A1c 5.4 % Normal 4.0-5.6 53 Hepatitis B Surface Ag Nonreactive Nonreactive 54 Syphillis Igg W/Reflex RPR Negative Negative 55 Serum Integrated SCRN Part 08/04/2018 Old DO Not Use [facility] Comment SEE BELOW 56 1 DE Referring Physician Name FLORINDA QUINONEZ 57 Referring Physician Phone [phone] 58 Referring Physician Npi [id number] 59 Date Of 1985 Collection Date 08/04/2018 60 Maternal Weight 153 lbs 61 Est'd Date Of Delivery 02/07/2019 62 ALBINA Determined By US 63 Mother's Ethnic Origin 64 Number Of Fetuses 1 65 Insulin Depend Diabetic NO 66 Repeat Specimen NO 67 HX Of Neural Tube Defects NO 68 Prev Down Synd NO 69 Donor Egg NO 70 Donor Age:Egg Retrieval NG 71 Cigarette Smoker NG 72 Urine Culture And 07/31/2018 [facility] Urine Culture SEE RESULT [address] [place] [address] BELOW [phone] Laboratory test 07/31/2018 [facility] Cytology SEE RESULT [address] [place] [address] BELOW [phone] GC/Chlamydia Dna 07/31/2018 [facility] Chlamydia [place] [address] trachomatis [phone] Rna Neisseria gonorrhoeae (GC) Rna Negative Negative 1 SEE RESULT BELOW Name: AKILAH SULLIVAN : [address]: Oralia Mooney MD Acct: [id number] Unit: [id number] AGE: 33 Location: [facility] Re01/12/19 SEX: F Status: REG REF SPEC: [id number] JORGE: 01/12/[address]: Oralia Mooney MD REQ: [id number] RECD: 01/12/19 STATUS: COMP _ SOURCE: TERESE/SALVADOR/RE SPDESC: ORDERED: Grp B Strp Scrn COMMENTS: [id number] QUERIES: Is Patient Penicillin Allergic? N Is patient penicillin allergic and/or sensitivities needed? N Provider Requisition # [id number] Procedure Result Reported Site Group B Strep Culture Screen Final 01/14/19- 1024 ML Group B Strep Screen Negative * - [facility] . END OF REPORT DEPARTMENT OF PATHOLOGY, [address] [place] [address] Tc Verdugo M.D. Director [facility] # [id number] REFERENCE VALUE Cutoff: 500 4 REFERENCE [...] 100 13 Metabolite of heroin 14 Lortab, [place], Vicodin; Also a very minor metabolite of [...] developed and its performance characteristics determined by [facility] in a manner consistent with CLIA requirements. This test has not been cleared or approved by the U.S. Food and Drug Administration. Test Performed by: [facility] [place] [address] [place] [address] 43 SCREEN NEGATIVE FOR OPEN NTD, DOWN SYNDROME AND TRISOMY 18. 44 Reference Range: <2.50 IDD <1.90 TWINS <4.00 TWINS IDD <3.50 TRIPLETS <4.50 45 This test was performed using a kit that has not been cleared or approved by the FDA. The analytical performance characteristics of this test have been determined by [facility]. This test should not be used for [...] technique. Interpretation reviewed by: Kaiden Olea, Ph.D., [facility]. 47 This is a screening test, [...] call ext [phone]; For recalculations, fax to . For additional information, please refer to [email or web address]/[email or web address] (This link is being provided for informational/educational purposes only.) 48 RESULT: Results suggest past infection. ADDITIONAL INFORMATION This test has been modified from the mobile patrol officer's instructions. Its performance characteristics were determined by [facility] in a manner consistent with CLIA requirements. This test has not been cleared or approved by the U.S. Food and Drug Administration. Test Performed by: [facility] [place] [address] 49 ADDITIONAL INFORMATION Testing performed by Inductively Coupled Plasma-Mass Spectrometry (ICP-MS). This test was developed and its performance characteristics determined by [facility] in a manner consistent with CLIA requirements. This test has not been cleared or approved by the U.S. Food and Drug Administration. 50 Test Performed by: [facility] [place] [address] 51 It is recognized that currently available assays [...] 95% confidence interval of 99.78 to 99.96%. 52 [id number] 53 Therapeutic target for the treatment of diabetes mellitus patients is <7% HBA1C, and in selective patients <6.0%. Please refer to [place] [employer] diabetic care guidelines for further information. 54 [id number] 55 [id number] 56 Thank you for submitting this patients Part 1 specimen. Please submit her Part 2 specimen between 08/16/2018-10/10/2018 (15.0 and 22.9 weeks gestation) with 08/16/2018-08/29/2018 (15.0 and 16.9 weeks gestation) being optimal. When submitting Part 2, please include the following Specimen # from Part 1: [id number] This test was developed and its analytical performance characteristics have been determined by [facility]. It has not been cleared or approved by FDA. This assay has been validated pursuant to the CLIA regulations and is used for clinical purposes. For additional information, please refer to [email or web address]/faq/[email or web address] (This link is being provided for informational/educational purposes only.) It has been observed that patients who smoke cigarettes during may have a slightly increased risk of having a false positive SATINDER screen for Down Syndrome or trisomy 18. If you have questions concerning this report: For clinical consultation, call ; For technical questions, call ext [phone]; For recalculations, fax to [phone]. 57 For additional information, please refer to http://[employer]/faq/FAQ91 (This link is being provided for informational/educational purposes only.) It has been observed that patients who smoke cigarettes during may have a slightly increased risk of having a false positive SATINDER screen for Down Syndrome or trisomy 18. If you have questions concerning this report: For clinical consultation, call ; For technical questions, call ext [phone]; For recalculations, fax to [phone]. 58 For additional information, please refer to http://[email or web address].TagSeats/faq/[email or web address] (This link is being provided for informational/educational purposes only.) It has been observed that patients who smoke cigarettes during may have a slightly increased risk of having a false positive SATINDER screen for Down Syndrome or trisomy 18. If you have questions concerning this report: For clinical consultation, call ; For technical questions, call ext [phone]; For recalculations, fax to [phone]. 59 For additional information, please refer to http://[employer]/faq/FAQ91 (This link is being provided for informational/educational purposes only.) It has been observed that patients who smoke cigarettes during may have a slightly increased risk of having a false positive SATINDER screen for Down Syndrome or trisomy 18. If you have questions concerning this report: For clinical consultation, call ; For technical questions, call ext [phone]; For recalculations, fax to [phone]. 60 For additional information, please refer to http://[employer]/faq/FAQ91 (This link is being provided for informational/educational purposes only.) It has been observed that patients who smoke cigarettes during may have a slightly increased risk of having a false positive SATINDER screen for Down Syndrome or trisomy 18. If you have questions concerning this report: For clinical consultation, call ; For technical questions, call ext [phone]; For recalculations, fax to [phone]. 61 For additional information, please refer to http://[employer]/faq/FAQ91 (This link is being provided for informational/educational purposes only.) It has been observed that patients who smoke cigarettes during may have a slightly increased risk of having a false positive SATINDER screen for Down Syndrome or trisomy 18. If you have questions concerning this report: For clinical consultation, call ; For technical questions, call ext [phone]; For recalculations, fax to [phone]. 62 For additional information, please refer to http://[employer]/faq/FAQ91 (This link is being provided for informational/educational purposes only.) It has been observed that patients who smoke cigarettes during may have a slightly increased risk of having a false positive SATINDER screen for Down Syndrome or trisomy 18. If you have questions concerning this report: For clinical consultation, call ; For technical questions, call ext [phone]; For recalculations, fax to [phone]. 63 For additional information, please refer to http://[employer]/faq/FAQ91 (This link is being provided for informational/educational purposes only.) It has been observed that patients who smoke cigarettes during may have a slightly increased risk of having a false positive SATINDER screen for Down Syndrome or trisomy 18. If you have questions concerning this report: For clinical consultation, call ; For technical questions, call ext [phone]; For recalculations, fax to [phone]. 64 For additional information, please refer to http://[employer]/faq/FAQ91 (This link is being provided for informational/educational purposes only.) It has been observed that patients who smoke cigarettes during may have a slightly increased risk of having a false positive SATINDER screen for Down Syndrome or trisomy 18. If you have questions concerning this report: For clinical consultation, call ; For technical questions, call ext [phone]; For recalculations, fax to [phone]. 65 For additional information, please refer to http://[employer]/faq/FAQ91 (This link is being provided for informational/educational purposes only.) It has been observed that patients who smoke cigarettes during may have a slightly increased risk of having a false positive SATINDER screen for Down Syndrome or trisomy 18. If you have questions concerning this report: For clinical consultation, call ; For technical questions, call ext [phone]; For recalculations, fax to [phone]. 66 For additional information, please refer to http://[employer]/faq/FAQ91 (This link is being provided for informational/educational purposes only.) It has been observed that patients who smoke cigarettes during may have a slightly increased risk of having a false positive SATINDER screen for Down Syndrome or trisomy 18. If you have questions concerning this report: For clinical consultation, call ; For technical questions, call ext [phone]; For recalculations, fax to [phone]. 67 For additional information, please refer to http://[email or web address].TagSeats/faq/[email or web address] (This link is being provided for informational/educational purposes only.) It has been observed that patients who smoke cigarettes during may have a slightly increased risk of having a false positive SATINDER screen for Down Syndrome or trisomy 18. If you have questions concerning this report: For clinical consultation, call ; For technical questions, call ext [phone]; For recalculations, fax to [phone]. 68 For additional information, please refer to http://[employer]/faq/FAQ91 (This link is being provided for informational/educational purposes only.) It has been observed that patients who smoke cigarettes during may have a slightly increased risk of having a false positive SATINDER screen for Down Syndrome or trisomy 18. If you have questions concerning this report: For clinical consultation, call ; For technical questions, call ext [phone]; For recalculations, fax to [phone]. 69 For additional information, please refer to http://[email or web address].TagSeats/faq/[email or web address] (This link is being provided for informational/educational purposes only.) It has been observed that patients who smoke cigarettes during may have a slightly increased risk of having a false positive SATINDER screen for Down Syndrome or trisomy 18. If you have questions concerning this report: For clinical consultation, call ; For technical questions, call ext [phone]; For recalculations, fax to [phone]. 70 For additional information, please refer to http://SaveUp.TagSeats/faq/[email or web address] (This link is being provided for informational/educational purposes only.) It has been observed that patients who smoke cigarettes during may have a slightly increased risk of having a false positive SATINDER screen for Down Syndrome or trisomy 18. If you have questions concerning this report: For clinical consultation, call ; For technical questions, call ext [phone]; For recalculations, fax to [phone]. 71 For additional information, please refer to http://[email or web address].TagSeats/faq/[email or web address] (This link is being provided for informational/educational purposes only.) It has been observed that patients who smoke cigarettes during may have a slightly increased risk of having a false positive SATINDER screen for Down Syndrome or trisomy 18. If you have questions concerning this report: For clinical consultation, call ; For technical questions, call ext [phone]; For recalculations, fax to [phone]. 72 For additional information, please refer to http://[email or web address].TagSeats/faq/[email or web address] (This link is being provided for informational/educational purposes only.) It has been observed that patients who smoke cigarettes during may have a slightly increased risk of having a false positive SATINDER screen for Down Syndrome or trisomy 18. If you have questions concerning this report: For clinical consultation, call ; For technical questions, call ext [phone]; For recalculations, fax to [phone]. 73 SEE RESULT BELOW Name: AKILAH SULLIVAN : [address]: Kerline Frsaer [facility] Acct: [id number] Unit: [id number] AGE: 33 Location: [facility] Re07/31/18 SEX: F Status: REG REF SPEC: [id number] JORGE: 07/31/18-[address] [facility] [address]: Kerline Fraser [facility] REQ: [id number] RECD: 08/01/18-1221 STATUS: COMP _ SOURCE: URINE SPDESC: ORDERED: Urine Culture COMMENTS: [id number] Procedure Result Reported Site Urine Culture Final 08/03/18- 1126 ML No growth of clinically significant organisms * - Main Lab . END OF REPORT DEPARTMENT OF PATHOLOGY, [address] [place] [address] Tc Verdugo M.D. Director [facility] # [id number] 74 SEE RESULT BELOW Name: SONIA AKILAH HYLTON : [address]: Kerline Fraser CNM Acct: [id number] Unit: [id number] AGE: 33 Location: [facility] Re07/31/18 SEX: F Status: REG REF SPEC: [id number] JORGE: 07/31/18-[address] [facility] [address]: Kerline VICK REQ: [id number] RECD: 08/01/18-1150 STATUS: SOUT _ ORDERED: TP IMAGE ANALYS, HPV/Thin Prep COMMENTS: [id number] Negative for Intraepithelial lesion or Malignancy Date Time Test Result Flag (u) Normal Range 04/22/19 2857 @ HPV RNA Negative Negative @ @ The high-risk HPV types detected by the assay include: 16, @ 18, 31, 33, 35, 39, 45, 51, 52, 56, 58, 59, 66, and 68. A. Ectocervical/Endocervical Specimen Adequacy: Satisfactory of evaluation Transformation zone component identified Patient Information: HPV: High risk HPV RNA testing regardless of pap results. Actual Specimen Date: 07/31/18 Last Menstrual Date: 05/10/18 ?: Y Post Menopausal?: N Hysterectomy?: N Previous Abnormal Pap Smears?:N Signed by and Reported on: DRAKE Fuchs(ASCP) [id number] This Pap test was evaluated with the assistance of the MobileSnackPrep Test Imaging System. Due to cytologic findings at the export freight clerk microscope, comprehensive manual rescreening by a Asbestos Siding Installer may be required. The Pap Smear is a screening test designed to aid in the detection of premalignant and malignant conditions of the uterine cervix. It is not a diagnostic procedure and should not be used as the sole means of detecting cervical cancer. Both false- positive and false- negative reports do occur. Depending on your risk status, a Pap smear should be obtained and evaluated every 1-3 years. END OF REPORT DEPARTMENT OF PATHOLOGY, [address] [place] [address] Tc Verdugo M.D. Director [facility] # [id number] Procedures Date Code Description Status 09/27/2018 55781 Echography Uterus Complete Completed 07/31/2018 72071 OB Ultrasound First Trimester Completed Medical Devices Description No Information Available Encounters Description No Information Available Assessments Date Code Description Provider 01/19/2019 O34.211 Maternal care for low transverse scar Danyell Guzman MD from previous delivery 01/12/2019 O34.211 Maternal care for low transverse scar Oralia Mooney MD from previous delivery 01/12/2019 Z23 Encounter for immunization Oralia Mooney MD 12/28/2018 O34.211 Maternal care for low transverse scar Danyell Guzman MD from previous delivery 12/15/2018 O34.211 Maternal care for low transverse scar Oralia Mooney MD from previous delivery 11/09/2018 Z36.9 Encounter for screening, Deion Ansari M.D. unspecified 11/09/2018 Z36.9 Encounter for screening, Laboratory unspecified 11/09/2018 O34.211 Matern care for low transverse scar from Danyell Guzman MD prev del 10/20/2018 Z34.82 Encounter for suprvsn of normal Danyell Guzman MD , second trimester 10/20/2018 O34.211 Matern care for low transverse scar from Danyell Guzman MD prev del 09/27/2018 Z36.3 Encounter for screening for Danyell Guzman MD malformations 09/27/2018 Z34.82 Encounter for suprvsn of normal Danyell Guzman MD , second trimester 09/27/2018 Z36.3 Encounter for screening for Ultrasounds malformations 08/30/2018 Z36.9 Encounter for screening, Deion Ansari M.D. unspecified 08/30/2018 Z34.82 Encounter for suprvsn of normal Danyell Guzman MD , second trimester 08/30/2018 Z36.9 Encounter for screening, Laboratory unspecified 08/04/2018 Z36.9 Encounter for screening, Oralia Mooney MD unspecified 08/04/2018 Z36.9 Encounter for screening, Laboratory unspecified 07/31/2018 O26.91 related conditions, Yenny Meneses MD unspecified, first trimester 07/31/2018 Z23 Encounter for immunization Kerline Fraser CNM 07/31/2018 Z34.81 Encounter for suprvsn of normal Kerline Fraser CNM , first trimester 07/31/2018 O26.91 related conditions, Ultrasounds unspecified, first trimester Plan of Treatment Future Appointment(s):03/05/2019 11:00 am - Oralia Mooney MD at [facility]02/08/2019 10:45 am - Kerline Fraser CNM at [facility]02/01/2019 7 :45 am - Joe Ferrara JR, [place] [facility] 7:45 am - [place] [facility] [place] Functional Status Functional Condition Comment Date Status Glasses Active Mental Status Description No Information Available Referrals Description No Information Available
[2019-02-01] MEDS ORDERED: ceFOXitin 2 GM IVPREMIX* 2 GM/50 ML BAG IVPB ONE (07:00)
[2019-02-01 07:33] LABS: Urine Benzodiazepine Screen None Detected (None Detect); Urine Opiates Screen None Detected (None Detect)
[2019-02-01] MEDS ORDERED: Morphine PF AMP (0.5MG/ML)* 5 MG/10 ML AMP ONE (07:47)
[2019-02-01] MEDS ORDERED: Dexamethasone IV* 4 MG/ML 1 ML (4 MG) ONE (07:47)
[2019-02-01] MEDS ORDERED: OXYTOCIN* 10 UNITS/ML 1 ML VIAL ONE (07:47)
[2019-02-01] MEDS ORDERED: Ondansetron INJ* 2 MG/ML VIAL ONE (07:47)
[2019-02-01] MEDS ORDERED: Phenylephrine 40 MCG/ML SYRINGE ONE (08:30)
[2019-02-01] MEDS ORDERED: oxyCODONE TAB* 5 MG TAB PO PRN ×2 (08:39)
[2019-02-01] MEDS ORDERED: Naloxone* 0.4 MG/ML 1 ML VIAL IV PRN ×2 (08:39)
[2019-02-01] MEDS ORDERED: PROCHLORPERAZINE INJ 5 MG/ML 2 ML VIAL IV PRN (08:39)
[2019-02-01] MEDS ORDERED: DiMENhydriNATE IV* 50 MG/ML VIAL IV PUSH PRN (08:39)
[2019-02-01] MEDS ORDERED: Ondansetron INJ* 2 MG/ML VIAL IV PRN (08:39)
[2019-02-01] MEDS ORDERED: Nalbuphine* 10 MG/ML 1 ML VIAL IV PRN (08:39)
[2019-02-01] MEDS ORDERED: fentaNYL* 50 MCG/ML 2 ML VIAL (100 MCG VIAL) IV PRN (08:39)
[2019-02-01] MEDS ORDERED: Ketorolac INJ* 30 MG/ML 1 ML VIAL IV PRN (08:39)
[2019-02-01] MEDS ORDERED: Acetaminophen IV 1GM/100ML * 1,000 MG/100 ML VIAL IVPB ONE (08:39)
[2019-02-01] MEDS ORDERED: Dibucaine 1% 28.35 GM TUBE PR PRN (09:31)
[2019-02-01] MEDS ORDERED: Witch Hazel PAD* JAR TOPICAL PRN (09:31)
[2019-02-01] MEDS ORDERED: Glycerin ADULT SUPP PR PRN (09:31)
[2019-02-01] MEDS ORDERED: Oxytocin in LR* 20 UNITS/1,000 ML BAG IVPB SCH (10:00)
[2019-02-01] MEDS ORDERED: Lactated Ringers 1000 ML Bag* 1,000 ML IV SCH (10:00)
--- NOTE | 2019-02-01 10:30 | OP ---
DATE OF OPERATION: 02/01/19 - ROOM #117 DATE OF : 89 SURGEON: Oralia Mooney MD. AUTOMOBILE PARKER: Joe Ferrara DO. ANESTHESIOLOGIST: Dr. Toro. ANESTHESIA: Spinal. PRE-OP DIAGNOSIS: Intrauterine at 39 weeks, desires repeat section, history of bicornuate uterus with full-length uterine septum. POST-OP DIAGNOSIS: Intrauterine at 39 weeks, desires repeat section, history of bicornuate uterus with full-length uterine septum. Delivered. PROCEDURE PERFORMED: Repeat low-transverse section. ESTIMATED BLOOD LOSS: 600 cc. IV FLUIDS: 2700 cc of crystalloid. URINE OUTPUT: 50 cc of clear yellow urine. FINDINGS: Revealed a vertex female, Apgars 8 at 1 minute, 9 at 5 minutes. No nuchal cord. Weight was 7 pounds 12 ounces. Normal appearing tubes and ovaries. Uterine cavity with a full- length septum the uterine cavity, bicornuate uterus septum ended at the low uterine segment. COMPLICATIONS: None apparent. DISPOSITION: Stable to recovery room. DESCRIPTION OF PROCEDURE: The patient was placed in dorsal lithotomy position. The abdomen was prepped and draped in sterile standard fashion. Anesthesia was tested to appropriate level. The patient was identified with universal protocol for correct procedure, position, and patient. Incision was made through prior incision using a scalpel, taken down to the fascia. Fascia was scored in the midline, extended laterally and superiorly using Rebolledo scissors, superiorly with blunt and sharp dissection from the rectus muscle superiorly. The peritoneum was then entered sharply. The peritoneal incision was extended bluntly. The bladder blade was inserted. Lower uterine segment was identified. Allis was used to tent up on the lower uterine segment. This was carried down to the membranes. The bandage scissors were then used for extension of this incision superiorly and laterally. Amniotomy was then created for clear fluid. was delivered direct OA. Cord was milked and then clamped and cut and then was handed off to waiting bending frame operator. Appropriate cord blood was obtained. Placenta was then manually extracted. The uterus was exteriorized and the uterine cavity on the right was explored. The uterine cavity on the left was explored and the decidual was removed. The incision itself was reapproximated in 2 layers, first layer running locked, second layer running imbricated. Tubes and ovaries were noted to have a normal appearance. The uterus was returned intraabdominally. Peritoneum was clamped with Lizeth and then reapproximated using 3-0 Vicryl in a running fashion. Please note that prior to closure of the peritoneum, the hysterotomy site was visualized and noted to be hemostatic. The subfascial area was visualized. Hemostasis was assured with Bovie coagulation. The fascia itself was reapproximated using 0 Vicryl x2 in a running fashion. Subcu was lavaged. Hemostasis was assured with Bovie coagulation, and the skin was then reapproximated using 4-0 Monocryl in a subcuticular fashion. Mastisol and Steris were applied. All sponge, instruments, and blade counts were correct at the end of the case. The patient tolerated the procedure well and went to the recovery room in stable condition. [id number]/[facility] #: [id number] NEISHA
[2019-02-01] MEDS: Ketorolac INJ* 30 MG/ML 1 ML VIAL IV SCH ×2 (11:53→18:20)
[2019-02-01] MEDS: Simethicone TAB* 80 MG TAB.CHEW PO SCH ×3 (13:25→19:58)
[2019-02-01] MEDS: Docusate CAP* 100 MG PO SCH ×2 (13:26→19:57)
[2019-02-01] MEDS: Acetaminophen TAB* 325 MG PO SCH (18:20)
[2019-02-02] MEDS: Ketorolac INJ* 30 MG/ML 1 ML VIAL IV SCH (00:12)
[2019-02-02] MEDS ORDERED: oxyCODONE/Acetamin 5/325 MG* TAB PO PRN ×2 (00:31)
[2019-02-02 06:26] LABS: ABS Lymphocytes 1.9 10^3/ul (1.0-4.8); ABS Monocytes 0.7 10^3/ul (0-0.8); ABS Neutrophils 8.8 10^3/ul (1.5-7.7); Eosinophil % 0.3 %; Hematocrit 24 % (35-47); Hemoglobin 8.1 g/dL (12.0-16.0); Lymphocyte % 16.4 %; Mean Corpuscular HGB Conc 34 g/dL (31-36); Mean Corpuscular Hemoglobin 27 pg (27-31); Mean Corpuscular Volume 81 fL (80-97); Platelet Count 221 10^3/uL (150-450); Red Blood Count 2.98 10^6 /uL (3.70-4.87); Red Cell Distribution Width 15 % (10-15); White Blood Count 11.4 10^3/uL (3.5-10.8)
[2019-02-02] MEDS: Ferrous Gluconate TAB* 324 MG TAB PO SCH ×2 (07:31→21:56)
[2019-02-02] MEDS: Simethicone TAB* 80 MG TAB.CHEW PO SCH ×4 (07:31→21:55)
[2019-02-02] MEDS: Docusate CAP* 100 MG PO SCH ×3 (07:31→21:55)
[2019-02-02] MEDS: Ibuprofen TAB* 600 MG PO PRN ×3 (07:32→20:07)
[2019-02-02] MEDS: Acetaminophen TAB* 325 MG PO SCH ×3 (13:51→22:01)
[2019-02-02] MEDS: Acetaminophen TAB* 325 MG PO PRN (22:00)
[2019-02-03] MEDS: Ibuprofen TAB* 600 MG PO PRN ×2 (04:04→10:28)
[2019-02-03] MEDS: Acetaminophen TAB* 325 MG PO PRN ×2 (04:05→13:27)
[2019-02-03] MEDS: Ferrous Gluconate TAB* 324 MG TAB PO SCH (08:11)
[2019-02-03] MEDS: Simethicone TAB* 80 MG TAB.CHEW PO SCH ×2 (08:11→13:27)
[2019-02-03] MEDS: Docusate CAP* 100 MG PO SCH (08:11)
[2019-02-03 08:23] VITALS: BP 113/58
== END 2019-02-03 13:15 | disposition home or self-care (01) | DRG 788 ==
LOC: MCHOB 06:21
PROVIDERS: ADMIT Obstetrics & Gynecology; ATTEND Obstetrics & Gynecology
PROC: 10D00Z1 Extraction of Products of Conception, Low, Open Approach (ICD-10-PCS; principal; 2019-02-01 07:45)
DX: O34.211 Maternal care for low transverse scar from previous cesarean delivery (principal); O99.02 Anemia complicating childbirth; O99.03 Anemia complicating the puerperium; D64.9 Anemia, unspecified; O34.00 Maternal care for unspecified congenital malformation of uterus, unspecified trimester; Q51.3 Bicornate uterus; Z3A.39 39 weeks gestation of pregnancy; Z37.0 Single live birth
CPT/HCPCS: 36415; 80307; 85025; A9270-GY; J0694; J1100; J1240; J1885; J2405; J2590

== ENCOUNTER 2019-05-23 14:08 | Emergency (ER) | payer OTHER ==
[2019-05-23 14:16] VITALS: BP 129/80
[2019-05-23 15:21] LABS: Influenza A Molecular Negative (Negative); Influenza B Molecular Negative (Negative)
--- NOTE | 2019-05-23 15:31 | UC ---
FLU HPI - HPI Summary HPI Summary: 34-year-old female who has had flulike illness over the past 24 hours. She is presently breast-feeding. - History of Current Complaint Chief Complaint: UCGeneralIllness Stated Complaint: FLU LIKE SYMPTOMS Time Seen by Provider: 05/23/19 15:22 Hx Obtained From: Patient Hx Last Menstrual Period: breast feeding ?: No Onset/Duration: Sudden Onset Severity Currently: Mild Severity Initially: Mild Pain Intensity: 1 Associated Signs & Symptoms: Positive: Fever, Myalgia, Nasal Congestion - Allergy/Home Medications Allergies/Adverse Reactions: Allergies Allergy/AdvReac Type Severity Reaction Status Date / Time No Known Allergies Allergy Verified 05/23/19 14:17 Home Medications: Home Medications NK [No Home Medications Reported] 05/23/19 [History Confirmed 05/23/19] PMH/Surg Hx/FS Hx/Imm Hx Previously Healthy: Yes - Surgical History Surgical History: Yes Surgery Procedure, Year, and Place: Rt KNEE - ACL RECON, 2003, [place] x 2 csec x 2 - Family History Known Family History: Positive: Hypertension - Social History Occupation: Employed Full-time Lives: With Family Alcohol Use: None Alcohol Amount: 5 PER MONTH Substance Use Type: None Smoking Status (MU): Never Smoked Tobacco Have You Smoked in the Last Year: No - Immunization History Most Recent Influenza Vaccination: 01/12/19 Most Recent Pneumonia Vaccination: none Review of Systems All Other Systems Reviewed And Are Negative: Yes Constitutional: Positive: Fever, Chills ENT: Positive: Nasal Discharge Respiratory: Positive: Cough Musculoskeletal: Positive: Myalgia Is Patient Immunocompromised?: No Physical Exam Triage Information Reviewed: Yes Appearance: Well-Appearing, No Pain Distress, Well-Nourished Vital Signs: Initial Vital Signs Temp 100.6 F 05/23/19 14:14 Pulse 99 05/23/19 14:14 Resp 18 05/23/19 14:14 BP 129/80 05/23/19 14:14 Pulse Ox 100 05/23/19 14:14 Vital Signs Reviewed: Yes Eyes: Positive: Conjunctiva Clear ENT: Positive: Pharynx normal, TMs normal, Uvula midline Neck: Positive: Supple, Nontender, No Lymphadenopathy Respiratory: Positive: Lungs clear, Normal breath sounds, No respiratory distress, No accessory muscle use Cardiovascular: Positive: RRR, No Murmur, Pulses Normal, Brisk Capillary Refill Musculoskeletal Exam: Normal Neurological Exam: Normal Psychological Exam: Normal Skin Exam: Normal Flu Course/Dx - Course Course Of Treatment: Rapid flu test: Negative Patient has been comfortable here and nontoxic, she does not appear ill. - Differential Dx/Diagnosis Provider Diagnosis: Flu-like symptoms Discharge ED - Sign-Out/Discharge Documenting (check all that apply): Patient Departure All imaging exams completed and their final reports reviewed: No Studies - Discharge Plan Condition: Good Disposition: HOME Patient Education Materials: Influenza (DC) Referrals: Freda Jaime MD [Primary Care Provider] - Additional Instructions: Increase fluids, rest - Billing Disposition and Condition Condition: GOOD Disposition: Home
== END 2019-05-23 15:42 | disposition home or self-care (01) ==
LOC: UCEAST 14:08
DX: M79.10 Myalgia, unspecified site (principal); R09.81 Nasal congestion; R50.9 Fever, unspecified; R05 Cough; R09.89 Other specified symptoms and signs involving the circulatory and respiratory systems
CPT/HCPCS: 99211; G0463